=== PATIENT | female | born 2000 | race Caucasian/White ===

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

== ENCOUNTER 2022-05-08 12:31 | Emergency (ER) | payer OTHER ==
[~2022-05-08] VITALS: Ht 154.9 cm; Wt 54.4 kg
[~2022-05-08 12:31] MED LIST: ALBU0.0912 INH; PRED20TA5 PO; PRON INH
[2022-05-08 12:48] VITALS: BP 103/72
--- NOTE | 2022-05-08 13:00 | NUR ---
PT WAS PUT ON BED 1.
[2022-05-08] MEDS ORDERED: ACETAMINOPHEN 325 MG TAB PO ONE (13:15)
--- NOTE | 2022-05-08 13:15 | NUR ---
21 YO F PRESENTS TO ED WITH GROIN PAIN. PT STATES HAVING CRAMPS FOR 2 WEEKS AND THE PAIN RADIATES DOWN TO HER LEFT LEG. DENIES N/V/D; SKIN IS PINK/WARM/DRY; AAOX4 WITH EVEN AND STEADY GAIT; LUNGS CLEAR BL; HR EVEN AND REGULAR; PT DENIES ANY FEVER, CP, SOB, OR COUGH AT THIS TIME; PATIENT STATES PAIN OF 0/10 AT THIS TIME; VSS; PATIENT POSITIONED FOR COMFORT; HOB ELEVATED; BEDRAILS UP X2; BED DOWN. ER MD MADE AWARE OF PT STATUS. PMH: NONE NKA
[2022-05-08 14:17] LABS: APPEARANCE,URINE CLEAR (CLEAR); BILIRUBIN,URINE NEGATIVE (NEGATIVE); BLOOD, URINE NEGATIVE (NEGATIVE); COLOR,URINE YELLOW (YELLOW); LEUKOCYTE ESTERASE ,URINE NEGATIVE (NEGATIVE); NITRITE, URINE NEGATIVE (NEGATIVE); PH,URINE 8.5 (5.0-9.0); UGLUCOSE NEGATIVE (NEGATIVE)
[2022-05-08] MEDS ORDERED: METH-1681 PO (14:20)
[2022-05-08] MEDS ORDERED: IBUP-2213 PO (14:20)
[2022-05-08] MEDS ORDERED: LID5T TP (14:20)
--- NOTE | 2022-05-08 14:22 | NUR ---
Edgardo reed in ED - 05/08/22 at 1422 by MEDR Patient discharged with v/s stable. Written and verbal after care instructions given and explained. Patient verbalized understanding. Ambulatory with steady gait. All questions addressed prior to discharge. Advised to follow up with PMD.
[2022-05-08 14:34] VITALS: BP 101/76
--- NOTE | 2022-05-08 14:34 | NUR ---
Patient discharged with v/s stable. Written and verbal after care instructions given and explained. Patient alert, oriented and verbalized understanding of instructions. Ambulatory with steady gait. All questions addressed prior to discharge. ID band removed. Patient advised to follow up with PMD. Rx of IBUPROFEN, LIDOCAINE, METHOCARBAMOL (SENT) given. Patient educated on indication of medication including possible reaction and side effects. Opportunity to ask questions provided and answered. NOTE GIVEN FOR WORK/SCHOOL COPY OF LABS AND IMAGING GIVEN
[2022-05-08] MEDS ORDERED: CEPH-588 PO (14:41)
== END 2022-05-08 14:34 | disposition home or self-care (01) ==
LOC: MED 12:31
DX: R10.32 Left lower quadrant pain (principal); J45.909 Unspecified asthma, uncomplicated; Z79.899 Other long term (current) drug therapy
CPT/HCPCS: 76830; 81003; 81025; 99284; Q0092